=== PATIENT | male | born 2000 | race Caucasian/White ===

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

== ENCOUNTER 2020-08-07 05:04 | Emergency (ER) | payer SELFPAY ==
[~2020-08-07] VITALS: Ht 185.4 cm; Wt 79.4 kg
[2020-08-07] MEDS ORDERED: THIAMINE 100mg/ml INJ (200mg/2ml VIAL) IV ONE (08:30)
[2020-08-07] MEDS ORDERED: SODIUM CHLORIDE 0.9% 1,000 ML IV ONE ×2 (08:30)
[2020-08-07 09:00] VITALS: BP 107/81
[2020-08-07 09:14] LABS: Basophils # (auto) 0.1 10 ^3/uL (0-0.2); Basophils % (auto) 0.8 % (0.0-2.0); Eosinophils # (auto) 0.1 10 ^3/uL (0-0.8); Eosinophils % (auto) 0.9 % (0.0-7.0); Hematocrit 43.8 % (41.0-53.0); Hemoglobin 15.4 g/dL (13.5-17.5); Lymphocytes # (auto) 2.6 10 ^3/uL (0.4-5.4); Mean Corpuscular Hemoglobin 33.8 pg (28.0-32.0); Mean Corpuscular Hgb Conc. 35.2 g/dL (32.0-36.0); Mean Corpuscular Volume 96.2 fL (80.0-100.0); Monocytes # (auto) 0.4 10 ^3/uL (0-1.3); Monocytes % (auto) 6.8 % (0.0-12.0); Neutrophils % (auto) 49.5 % (37.0-80.0); Platelet Count (auto) 297 10^3/uL (140-450); Red Blood Cells 4.56 10^6/uL (4.5-5.90); Red Cell Distribution Width 12.1 % (11.8-14.3); White Blood Cell 6.1 10^3/uL (4.4-10.8)
[2020-08-07 09:34] LABS: Albumin 3.1 g/dL (3.4-5.0); Calcium 7.8 mg/dL (8.5-10.1); Potassium 3.3 mmol/L (3.5-5.1)
[2020-08-07 09:39] LABS: BUN/Creatinine Ratio 12.5; Bilirubin, Total 0.2 mg/dL (0.2-1.0); Total Protein 6.6 g/dL (6.4-8.2)
[2020-08-07] MEDS ORDERED: POTASSIUM EFFERVESENT TAB 25 MEQ PO ONE (11:00)
== END 2020-08-07 11:26 | disposition home or self-care (01) ==
LOC: EDBD 05:04 → ER 05:04
DX: F10.920 Alcohol use, unspecified with intoxication, uncomplicated (principal); E87.6 Hypokalemia; Z20.828 Contact with and (suspected) exposure to other viral communicable diseases
CPT/HCPCS: 36415; 71045; 80053; 80320; 84484; 85025; 87426; 96361; 96374; 99284; C9803; J3411; U0003

== ENCOUNTER 2020-11-06 22:34 | Emergency (ER) | payer BC, OTHER, SELFPAY ==
[~2020-11-06] VITALS: Ht 185.4 cm; Wt 77.1 kg
[~2020-11-06 22:34] MED LIST changes: -IBUP800T24 PO; +IBUP800T27 PO
[2020-11-06] MEDS ORDERED: SODIUM CHLORIDE 0.9% 1,000 ML IV ONE ×2 (23:15)
[2020-11-07] MEDS ORDERED: NOREPINEPHRINE 8 MG/250ML KIT 250 ML IV SCH (00:30)
[2020-11-07 00:52] LABS: Basophils # (auto) 0.1 10 ^3/uL (0-0.2); Basophils % (auto) 0.4 % (0.0-2.0); Eosinophils # (auto) 0 10 ^3/uL (0-0.8); Hemoglobin 17.2 g/dL (13.5-17.5); Neutrophils # (auto) 12.2 10 ^3/uL (1.6-8.6)
[2020-11-07 00:55] LABS: Hematocrit 48.3 % (41.0-53.0); Lymphocytes # (auto) 1.4 10 ^3/uL (0.4-5.4); Lymphocytes % (auto) 9.4 % (10.0-50.0); Mean Corpuscular Hemoglobin 34.5 pg (28.0-32.0); Mean Corpuscular Hgb Conc. 35.5 g/dL (32.0-36.0); Mean Corpuscular Volume 97.1 fL (80.0-100.0); Monocytes # (auto) 1.1 10 ^3/uL (0-1.3); Monocytes % (auto) 7.3 % (0.0-12.0); Neutrophils % (auto) 82.9 % (37.0-80.0); Nucleated Red Blood Cells % 0.1 %; Platelet Count (auto) 342 10^3/uL (140-450); Red Blood Cells 4.98 10^6/uL (4.5-5.90); Red Cell Distribution Width 12.1 % (11.8-14.3); White Blood Cell 14.8 10^3/uL (4.4-10.8)
[2020-11-07 01:28] LABS: INR 1.05 (0.9-1.15); Partial Thromboplastin Time 23.9 sec (23.0-31.2)
[2020-11-07 01:38] LABS: Alanine Aminotransferase 31 U/L (16-61); Alkaline Phosphatase 93 U/L (45-117); Anion Gap 18 (5-15); Aspartate Aminotransferase 43 U/L (15-37); Blood Urea Nitrogen 9 mg/dL (7-18); Calcium 8.4 mg/dL (8.5-10.1); Carbon Dioxide 17 mmol/L (21-32); Chloride 101 mmol/L (98-107); GFR African American 139 mL/min; GFR Non-African American 115 mL/min; Glucose 84 mg/dL (74-106); Potassium 3.4 mmol/L (3.5-5.1); Sodium 136 mmol/L (136-145)
[2020-11-07 01:39] LABS: Albumin 3.6 g/dL (3.4-5.0); Bilirubin, Total 1.3 mg/dL (0.2-1.0); Total Protein 7.3 g/dL (6.4-8.2)
[2020-11-07 01:40] LABS: BUN/Creatinine Ratio 10.2
[2020-11-07 02:00] VITALS: BP 134/78
[2020-11-07 03:03] LABS: Amphetamine Screen, Urine POSITIVE (NEGATIVE); Barbiturate Scree,Urine NEGATIVE (NEGATIVE); Benzodiazephine Screen, Urine NEGATIVE (NEGATIVE); Cannabinoid Screen, Urine POSITIVE (NEGATIVE); Cocaine Screen, Urine POSITIVE (NEGATIVE); Opiate Scree,Urine NEGATIVE (NEGATIVE); Phencyclidine Screen, Urine NEGATIVE (NEGATIVE)
== END 2020-11-07 02:37 | disposition home or self-care (01) ==
LOC: EDBD 22:34 → ER 22:34
DX: F10.129 Alcohol abuse with intoxication, unspecified (principal); R00.2 Palpitations; R00.0 Tachycardia, unspecified; Y90.9 Presence of alcohol in blood, level not specified; Z79.899 Other long term (current) drug therapy
CPT/HCPCS: 36415; 71045; 80053; 80307; 80320; 83735; 84443; 84484; 85025; 85379; 85610; 85730; 93005; 96360; 99285; J7030

== ENCOUNTER 2021-06-18 01:17 | Emergency (ER) | payer BC ==
[~2021-06-18] VITALS: Ht 185.4 cm; Wt 79.4 kg
[2021-06-18 01:28] VITALS: BP 126/83
== END 2021-06-18 01:32 | disposition left against medical advice (07) ==
LOC: ER 01:17
DX: M25.521 Pain in right elbow (principal)

== ENCOUNTER 2021-11-28 12:08 | Emergency (ER) | payer SELFPAY ==
[~2021-11-28] VITALS: Ht 185.4 cm; Wt 79.4 kg
[2021-11-28 12:23] VITALS: BP 124/83
[2021-11-28] MEDS ORDERED: ASPirin 81 mg TAB PO ONE (12:45)
[2021-11-28 13:36] LABS: Eosinophils # (auto) 0 10 ^3/uL (0-0.8); Eosinophils % (auto) 0.5 % (0.0-7.0); Lymphocytes # (auto) 0.5 10 ^3/uL (0.4-5.4); Red Cell Distribution Width 11.7 % (11.8-14.3); White Blood Cell 8.5 10^3/uL (4.4-10.8)
[2021-11-28 13:38] LABS: Basophils # (auto) 0 10 ^3/uL (0-0.2); Basophils % (auto) 0.5 % (0.0-2.0); Hemoglobin 16.4 g/dL (13.5-17.5); Lymphocytes % (auto) 5.9 % (10.0-50.0); Mean Corpuscular Hemoglobin 34.9 pg (28.0-32.0); Mean Corpuscular Hgb Conc. 35.7 g/dL (32.0-36.0); Mean Corpuscular Volume 97.6 fL (80.0-100.0); Monocytes # (auto) 1.1 10 ^3/uL (0-1.3); Monocytes % (auto) 12.5 % (0.0-12.0); Neutrophils # (auto) 6.9 10 ^3/uL (1.6-8.6); Neutrophils % (auto) 80.6 % (37.0-80.0); Nucleated Red Blood Cells % 0.1 %; Red Blood Cells 4.72 10^6/uL (4.5-5.90)
[2021-11-28 14:47] LABS: Albumin 3.6 g/dL (3.4-5.0); Calcium 9.1 mg/dL (8.5-10.1); Potassium 4.2 mmol/L (3.5-5.1)
[2021-11-28 14:51] LABS: BUN/Creatinine Ratio 6.7; Bilirubin, Total 0.2 mg/dL (0.2-1.0); Total Protein 7.4 g/dL (6.4-8.2)
== END 2021-11-28 15:34 | disposition home or self-care (01) ==
LOC: ER 12:08
DX: R07.89 Other chest pain (principal); F17.210 Nicotine dependence, cigarettes, uncomplicated
CPT/HCPCS: 36415; 71046; 80053; 84484; 85025; 93005

== ENCOUNTER 2022-04-06 02:18 | Emergency (ER) | payer MEDICAID ==
[~2022-04-06] VITALS: Ht 182.9 cm; Wt 68.0 kg
[2022-04-06 03:12] LABS: Basophils # (auto) 0.1 10 ^3/uL (0-0.2); Basophils % (auto) 1.2 % (0.0-2.0); Eosinophils # (auto) 0 10 ^3/uL (0-0.8); Eosinophils % (auto) 0.4 % (0.0-7.0); Hematocrit 48.7 % (41.0-53.0); Lymphocytes # (auto) 2.2 10 ^3/uL (0.4-5.4); Lymphocytes % (auto) 38.3 % (10.0-50.0); Mean Corpuscular Hemoglobin 32.2 pg (28.0-32.0); Mean Corpuscular Hgb Conc. 34.9 g/dL (32.0-36.0); Mean Corpuscular Volume 92.2 fL (80.0-100.0); Monocytes # (auto) 0.6 10 ^3/uL (0-1.3); Monocytes % (auto) 10.9 % (0.0-12.0); Neutrophils # (auto) 2.9 10 ^3/uL (1.6-8.6); Neutrophils % (auto) 49.2 % (37.0-80.0); Red Blood Cells 5.28 10^6/uL (4.5-5.90); Red Cell Distribution Width 13.3 % (11.8-14.3); White Blood Cell 5.9 10^3/uL (4.4-10.8)
[2022-04-06 03:29] LABS: Albumin 3.5 g/dL (3.4-5.0); BUN/Creatinine Ratio 6.7; Calcium 8.4 mg/dL (8.5-10.1); Magnesium 2.2 mg/dL (1.6-2.6); Potassium 3.7 mmol/L (3.5-5.1)
[2022-04-06 03:32] LABS: Bilirubin, Total 0.5 mg/dL (0.2-1.0); Lactic Acid w/Reflex 2.7 mmol/L (0.4-2.0); Total Protein 7.3 g/dL (6.4-8.2)
[2022-04-06 04:00] LABS: Blood Alcohol 332.3 mg/dL (0-5)
[2022-04-06] MEDS ORDERED: THIAMINE 100mg/ml INJ (200mg/2ml VIAL) IV ONE (04:00)
[2022-04-06] MEDS ORDERED: SODIUM CHLORIDE 0.9% 1,000 ML IV ONE ×2 (04:00→04:30)
[2022-04-06 04:05] LABS: INR 0.92 (0.9-1.15)
[2022-04-06] MEDS ORDERED: CYANOCOBALAMIN (B-12) 1000 MCG/1 ML VIAL IM ONE (08:45)
[2022-04-06] MEDS ORDERED: FOLIC ACID 1 MG, MULTIPLE VITAMIN 10 ML, MAGNESIUM SULF SDV 50% 8 MEQ, THIAMINE INJ 100... INJ SCH ×5 (12:00)
[2022-04-06 13:45] LABS: Amphetamine Screen, Urine NEGATIVE (NEGATIVE); Barbiturate Scree,Urine NEGATIVE (NEGATIVE); Benzodiazephine Screen, Urine NEGATIVE (NEGATIVE); Cannabinoid Screen, Urine NEGATIVE (NEGATIVE); Cocaine Screen, Urine NEGATIVE (NEGATIVE); Opiate Scree,Urine NEGATIVE (NEGATIVE); Phencyclidine Screen, Urine NEGATIVE (NEGATIVE)
[2022-04-06 14:47] LABS: Urine Bacteria NONE SEEN /hpf (None Seen); Urine Blood Negative /uL (Negative); Urine Specific Gravity 1.011 (1.001-1.035); Urine WBC 1 /hpf (0 - 3)
[2022-04-06] MEDS ORDERED: CHL25C PO (18:21)
[2022-04-06] MEDS ORDERED: THI100I IJ (18:21)
[2022-04-06] MEDS ORDERED: FOLITAB22 PO (18:21)
[2022-04-06 18:38] VITALS: BP 118/86
== END 2022-04-06 18:49 | disposition home or self-care (01) ==
LOC: EDBD 02:18 → ER 02:18
DX: G62.1 Alcoholic polyneuropathy (principal); F10.129 Alcohol abuse with intoxication, unspecified; F17.210 Nicotine dependence, cigarettes, uncomplicated; M54.2 Cervicalgia; Y90.8 Blood alcohol level of 240 mg/100 ml or more
CPT/HCPCS: 36415; 70450; 71045; 72125; 80053; 80307; 80320; 81001; 83605; 83735; 84484; 85025; 85610; 93005; 96361; 96365; 96366; 96372; 96375; 99285; J3411; J3420; J3475; J7030

== ENCOUNTER 2023-04-08 22:24 | Emergency (ER) | payer BC, MEDICAID ==
[~2023-04-08] VITALS: Ht 185.4 cm; Wt 80.0 kg
[~2023-04-08 22:24] MED LIST changes: +CHL25C PO; +FOLITAB22 PO; +IBUP-1456 PO; -IBUP800T27 PO; +THI100I IJ
[2023-04-08 22:37] VITALS: BP 138/97; PULSE 100; RESP 18; O2SAT 96
[2023-04-08 22:58] LABS: Basophils # (auto) 0.1 10 ^3/uL (0-0.2); Eosinophils # (auto) 0 10 ^3/uL (0-0.8); Hemoglobin 15.6 g/dL (13.5-17.5); Neutrophils # (auto) 3.2 10 ^3/uL (1.6-8.6); Red Blood Cells 4.48 10^6/uL (4.5-5.90)
[2023-04-08 22:59] LABS: Basophils % (auto) 1.2 % (0.0-2.0); Eosinophils % (auto) 0.3 % (0.0-7.0); Hematocrit 44.4 % (41.0-53.0); Lymphocytes # (auto) 2.1 10 ^3/uL (0.4-5.4); Lymphocytes % (auto) 36.1 % (10.0-50.0); Mean Corpuscular Hemoglobin 34.7 pg (28.0-32.0); Mean Corpuscular Volume 99.1 fL (80.0-100.0); Monocytes # (auto) 0.5 10 ^3/uL (0-1.3); Monocytes % (auto) 8.1 % (0.0-12.0); Neutrophils % (auto) 54.3 % (37.0-80.0); Nucleated Red Blood Cells % 0.1 %; Red Cell Distribution Width 11.8 % (11.8-14.3); White Blood Cell 5.9 10^3/uL (4.4-10.8)
[2023-04-08 23:21] LABS: INR 1.01 (0.9-1.15); Partial Thromboplastin Time 24.8 SEC (24.5-34.5); Prothrombin Time 10.6 sec (9.3-11.8)
[2023-04-08] MEDS ORDERED: IOHEXOL 300 MG/ML 100ML BOTTLE IJ ONE (23:30)
[2023-04-09 02:00] LABS: Alanine Aminotransferase 49 U/L (7-40); Alkaline Phosphatase 81 U/L (46-116); Anion Gap 13 (5-15); BUN/Creatinine Ratio 5.1 (10.0-20.0); Blood Urea Nitrogen 5 mg/dL (9-23); Calcium 9.2 mg/dL (8.7-10.4); Carbon Dioxide 24 mmol/L (20-30); Chloride 105 mmol/L (98-107); Glucose 107 mg/dL (74-106); Potassium 4.2 mmol/L (3.5-5.1); Sodium 142 mmol/L (136-145)
[2023-04-09 02:01] LABS: Albumin 4.3 g/dL (3.2-4.8)
[2023-04-09 02:02] LABS: Aspartate Aminotransferase 83 U/L (13-40); Bilirubin, Total 0.5 mg/dL (0.2-1.0); Total Protein 6.8 g/dL (5.7-8.2)
== END 2023-04-09 00:45 | disposition left against medical advice (07) ==
LOC: EDBD 22:24 → ER 22:24
DX: S00.93XA Contusion of unspecified part of head, initial encounter (principal); F32.9 Major depressive disorder, single episode, unspecified; F17.210 Nicotine dependence, cigarettes, uncomplicated; F10.90 Alcohol use, unspecified, uncomplicated; Z98.890 Other specified postprocedural states; Z79.899 Other long term (current) drug therapy; Y08.89XA Assault by other specified means, initial encounter; Y93.89 Activity, other specified; Y92.89 Other specified places as the place of occurrence of the external cause; Y99.8 Other external cause status
CPT/HCPCS: 36415; 70450; 70486; 71260; 72125; 74177; 80053; 80320; 85025; 85610; 85730; 99285; Q9967

== ENCOUNTER 2023-11-10 18:09 | Inpatient (IN) | payer BC, MEDICAID ==
[~2023-11-10] VITALS: Ht 185.4 cm; Wt 80.4 kg
[2023-11-10] MEDS: LORazepam 2MG/ML-1ML VIAL IV ONE ×3 (18:55→20:20)
[2023-11-10 18:58] LABS: Basophils # (auto) 0.1 10 ^3/uL (0-0.2); Eosinophils # (auto) 0 10 ^3/uL (0-0.8); Hematocrit 44.8 % (41.0-53.0); Hemoglobin 15.4 g/dL (13.5-17.5); Lymphocytes # (auto) 0.5 10 ^3/uL (0.4-5.4); Mean Corpuscular Hgb Conc. 34.4 g/dL (32.0-36.0); Mean Corpuscular Volume 101.7 fL (80.0-100.0); Monocytes # (auto) 0.5 10 ^3/uL (0-1.3); Monocytes % (auto) 7.1 % (0.0-12.0); Neutrophils # (auto) 6.4 10 ^3/uL (1.6-8.6); Neutrophils % (auto) 84.9 % (37.0-80.0); Nucleated Red Blood Cells % 0.1 %; White Blood Cell 7.5 10^3/uL (4.4-10.8)
[2023-11-10 19:05] LABS: Chloride 103 mmol/L (98-107); Potassium 3.5 mmol/L (3.5-5.1); Sodium 140 mmol/L (136-145)
[2023-11-10 19:06] LABS: Anion Gap 19 (5-15); Calcium 8.8 mg/dL (8.5-10.1); Carbon Dioxide 18 mmol/L (20-30)
[2023-11-10 19:11] LABS: Glucose 167 mg/dL (74-106)
[2023-11-10 19:14] LABS: Blood Urea Nitrogen < 5 mg/dL (9-23)
[2023-11-10 19:35] VITALS: PULSE 133; RESP 16; O2SAT 95
[2023-11-10] MEDS: SODIUM CHLORIDE 0.9% 1,000 ML IV ONE ×2 (21:09)
[2023-11-10 22:00] LABS: Amphetamine Screen, Urine Neg (NEGATIVE); Benzodiazephine Screen, Urine Neg (NEGATIVE)
[2023-11-10 22:01] LABS: Barbiturate Scree,Urine Neg (NEGATIVE); Cannabinoid Screen, Urine Neg (NEGATIVE); Cocaine Screen, Urine Neg (NEGATIVE); Opiate Scree,Urine Neg (NEGATIVE); Phencyclidine Screen, Urine Neg (NEGATIVE)
[2023-11-10] MEDS ORDERED: DOCUSATE SOD 100 MG CAP PO PRN (22:30)
[2023-11-10] MEDS ORDERED: hydrALAZINE HCL 20 MG/ML VL IV PRN (22:30)
[2023-11-10] MEDS ORDERED: ACETAMINOPHEN 325 MG TAB PO PRN (22:30)
[2023-11-10] MEDS ORDERED: MORPHINE SULFATE INJ 2 MG/ml SYRG IV PRN (23:30)
[2023-11-10] MEDS ORDERED: NITROGLYCERIN 0.4 MG SL TAB SL PRN (23:30)
[2023-11-11] VITALS (8 sets, daily range): BP systolic 105–137; BP diastolic 69–93; PULSE 54–99; RESP 17–20; TEMP 97.9–98.5; O2SAT 94–99
[2023-11-11] MEDS: HYDROcodone-ACET 5/325MG TAB PO PRN (01:46)
[2023-11-11] MEDS: ONDANSETRON HCL 4 MG/2 ML VIAL IV PRN (01:46)
[2023-11-11] MEDS: LORazepam 2MG/ML-1ML VIAL IV PRN (04:48)
[2023-11-11] MEDS: SODIUM CHLOR 0.9% PF (SALINE LOCK) 10ML VIAL/SYR IV SCH (06:00)
[2023-11-11 07:32] LABS: Basophils # (auto) 0.1 10 ^3/uL (0-0.2); Eosinophils # (auto) 0 10 ^3/uL (0-0.8); Hemoglobin 13.1 g/dL (13.5-17.5); Lymphocytes # (auto) 1.3 10 ^3/uL (0.4-5.4); Monocytes # (auto) 0.7 10 ^3/uL (0-1.3); Neutrophils # (auto) 3.3 10 ^3/uL (1.6-8.6); Neutrophils % (auto) 60.3 % (37.0-80.0)
[2023-11-11 07:35] LABS: Basophils % (auto) 1.2 % (0.0-2.0); Eosinophils % (auto) 0.6 % (0.0-7.0); Hematocrit 37.9 % (41.0-53.0); Lymphocytes % (auto) 24.5 % (10.0-50.0); Mean Corpuscular Hemoglobin 34.9 pg (28.0-32.0); Mean Corpuscular Hgb Conc. 34.6 g/dL (32.0-36.0); Mean Corpuscular Volume 100.7 fL (80.0-100.0); Monocytes % (auto) 13.4 % (0.0-12.0); Nucleated Red Blood Cells % 0.2 %; Red Blood Cells 3.76 10^6/uL (4.5-5.90); White Blood Cell 5.5 10^3/uL (4.4-10.8)
[2023-11-11 07:38] LABS: Alanine Aminotransferase 107 U/L (7-40); Albumin 3.1 g/dL (3.2-4.8); Alkaline Phosphatase 79 U/L (46-116); Anion Gap 9 (5-15); Aspartate Aminotransferase 179 U/L (13-40); Carbon Dioxide 25 mmol/L (20-30); Chloride 105 mmol/L (98-107); Glucose 89 mg/dL (74-106); Potassium 3.8 mmol/L (3.5-5.1); Sodium 139 mmol/L (136-145)
[2023-11-11 07:39] LABS: BUN/Creatinine Ratio 6.3 (10.0-20.0); Bilirubin, Total 1.2 mg/dL (0.2-1.0); Blood Urea Nitrogen < 5 mg/dL (9-23); Total Protein 5.3 g/dL (5.7-8.2)
[2023-11-11] MEDS: MULTIPLE VITAMIN TAB PO SCH (10:47)
[2023-11-11] MEDS: THIAMINE 100mg/ml INJ (200mg/2ml VIAL) IV SCH (10:49)
[2023-11-11] MEDS: FOLIC ACID 1 MG in D5W 5% 50 ML INJ SCH (12:00)
[2023-11-11] MEDS: PANTOPRAZOLE 40 MG TAB PO ONE (13:53)
[2023-11-11] MEDS: chlordiazePOXIDE HCL 5 MG CAP PO PRN (18:32)
[2023-11-12] VITALS (9 sets, daily range): BP systolic 116–140; BP diastolic 73–95; PULSE 50–82; RESP 17–65; TEMP 97.8–98.2; O2SAT 19–100
[2023-11-12] MEDS: PANTOPRAZOLE 40 MG TAB PO SCH (09:01)
[2023-11-13] VITALS (8 sets, daily range): BP systolic 125–139; BP diastolic 70–88; PULSE 51–68; RESP 12–20; TEMP 97.8–99.1; O2SAT 96–100
[2023-11-13] MEDS: SODIUM CHLORIDE 0.9% 1,000 ML IV SCH (11:45)
[2023-11-14 01:00] VITALS: BP 137/91; PULSE 54; RESP 14; TEMP 98.6; O2SAT 98
[2023-11-14 05:00] VITALS: BP 123/86; PULSE 58; RESP 14; TEMP 98.1; O2SAT 99
[2023-11-14 08:00] VITALS: BP_SYST 123; BP_SYST 133; BP_DIAS 86; BP_DIAS 93; PULSE 48; PULSE 97; RESP 14; RESP 16; TEMP 98; TEMP 98.1; O2SAT 100; O2SAT 99
[2023-11-14 12:00] VITALS: BP 132/81; PULSE 102; RESP 18; TEMP 97.7; O2SAT 99
[2023-11-14 16:00] VITALS: BP 132/81; PULSE 102; RESP 18; TEMP 97.7; O2SAT 99
[2023-11-14] MEDS ORDERED: ZOFR4T PO (16:43)
[2023-11-14] MEDS ORDERED: LORA-1121 PO (16:43)
[2023-11-14] MEDS ORDERED: PANT40TA2 PO (16:43)
[2023-11-14] MEDS ORDERED: MULT-351 PO (16:43)
[2023-11-14 17:48] VITALS: BP 123/86; PULSE 58; RESP 18; TEMP 36.5; O2SAT 99
== END 2023-11-14 19:50 | disposition home or self-care (01) | DRG 897 ==
LOC: EDBD 18:09 → EDUNIT# 18:09 → ER 18:09 → TELE 23:29 → TELE-WESTW 11-11 03:29
PROVIDERS: ADMIT Nurse Practitioner Family; ATTEND Internal Medicine
DX: F10.139 Alcohol abuse with withdrawal, unspecified (principal); D69.6 Thrombocytopenia, unspecified; I16.0 Hypertensive urgency; N28.9 Disorder of kidney and ureter, unspecified; F32.A Depression, unspecified; F17.210 Nicotine dependence, cigarettes, uncomplicated; K70.9 Alcoholic liver disease, unspecified; R74.01 Elevation of levels of liver transaminase levels; Y90.9 Presence of alcohol in blood, level not specified; Z82.3 Family history of stroke; Z83.3 Family history of diabetes mellitus
CPT/HCPCS: 36415; 80048; 80053; 80307; 85025; 87081; 97110; 97116; 97163; 97530; G0378; J2405; J7060

== ENCOUNTER 2024-06-25 14:40 | Emergency (ER) | payer BC, MEDICAID ==
[~2024-06-25] VITALS: Ht 185.4 cm; Wt 85.0 kg
[~2024-06-25 14:40] MED LIST changes: +LORA-1121 PO; +MULT-351 PO; +PANT40TA2 PO; +ZOFR4T PO
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
[2024-06-25] MEDS ORDERED: SODIUM CHLORIDE 0.9% 1,000 ML IV ONE (15:00)
[2024-06-25] MEDS ORDERED: ONDANSETRON HCL 4 MG/2 ML VIAL IV ONE (15:00)
[2024-06-25 15:37] LABS: Basophils # (auto) 0 10 ^3/uL (0-0.2); Basophils % (auto) 0.6 % (0.0-2.0); Eosinophils # (auto) 0 10 ^3/uL (0-0.8); Eosinophils % (auto) 0.4 % (0.0-7.0); Hematocrit 48.3 % (41.0-53.0); Hemoglobin 17.3 g/dL (13.5-17.5); Lymphocytes # (auto) 1.6 10 ^3/uL (0.4-5.4); Lymphocytes % (auto) 20.6 % (10.0-50.0); Mean Corpuscular Hemoglobin 32.7 pg (28.0-32.0); Mean Corpuscular Hgb Conc. 35.8 g/dL (32.0-36.0); Mean Corpuscular Volume 91.4 fL (80.0-100.0); Monocytes # (auto) 0.9 10 ^3/uL (0-1.3); Monocytes % (auto) 10.8 % (0.0-12.0); Neutrophils # (auto) 5.4 10 ^3/uL (1.6-8.6); Neutrophils % (auto) 67.6 % (37.0-80.0); Nucleated Red Blood Cells % 0.1 %; Platelet Count (auto) 243 10^3/uL (140-450); Red Blood Cells 5.29 10^6/uL (4.5-5.90); Red Cell Distribution Width 13.6 % (11.8-14.3); White Blood Cell 7.9 10^3/uL (4.4-10.8)
[2024-06-25 15:51] LABS: Anion Gap 10 (5-15); Carbon Dioxide 31 mmol/L (20-31); Chloride 103 mmol/L (98-107); Potassium 3.8 mmol/L (3.5-5.1); Sodium 144 mmol/L (136-145)
[2024-06-25 15:52] LABS: Calcium 9.5 mg/dL (8.7-10.4)
[2024-06-25 15:57] LABS: BUN/Creatinine Ratio 6.9 (10.0-20.0)
[2024-06-25 16:04] LABS: Acetaminophen < 2.0 UG/ML (10.0-20.0)
[2024-06-25 16:07] LABS: Blood Alcohol 387.8 mg/dL (<10); Blood Urea Nitrogen 7 mg/dL (9-23); Glucose 115 mg/dL (74-106)
[2024-06-25 16:18] LABS: Salicylate < 3.0 mg/dL (-30)
[2024-06-25 16:54] VITALS: BP 176/103; PULSE 86; RESP 18; TEMP 97.5; O2SAT 98
== END 2024-06-25 22:57 | disposition left against medical advice (07) ==
LOC: ER 14:40
DX: F10.129 Alcohol abuse with intoxication, unspecified (principal); F32.9 Major depressive disorder, single episode, unspecified; F17.210 Nicotine dependence, cigarettes, uncomplicated; Z86.73 Personal history of transient ischemic attack (TIA), and cerebral infarction without residual deficits; Z98.890 Other specified postprocedural states; Z79.899 Other long term (current) drug therapy; Y90.0 Blood alcohol level of less than 20 mg/100 ml
CPT/HCPCS: 36415; 80048; 80320; 80329; 85025

== ENCOUNTER 2024-06-28 12:29 | Emergency (ER) | payer MEDICAID ==
[~2024-06-28] VITALS: Ht 180.3 cm; Wt 77.2 kg
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
[2024-06-28 16:22] LABS: Basophils # (auto) 0 10 ^3/uL (0-0.2); Basophils % (auto) 0.7 % (0.0-2.0); Eosinophils # (auto) 0.2 10 ^3/uL (0-0.8); Eosinophils % (auto) 2.5 % (0.0-7.0); Hematocrit 41.4 % (41.0-53.0); Hemoglobin 14.4 g/dL (13.5-17.5); Lymphocytes # (auto) 2.1 10 ^3/uL (0.4-5.4); Lymphocytes % (auto) 32.8 % (10.0-50.0); Mean Corpuscular Hemoglobin 32.2 pg (28.0-32.0); Mean Corpuscular Hgb Conc. 34.7 g/dL (32.0-36.0); Mean Corpuscular Volume 92.7 fL (80.0-100.0); Monocytes # (auto) 0.5 10 ^3/uL (0-1.3); Monocytes % (auto) 7.2 % (0.0-12.0); Neutrophils # (auto) 3.7 10 ^3/uL (1.6-8.6); Neutrophils % (auto) 56.8 % (37.0-80.0); Platelet Count (auto) 198 10^3/uL (140-450); Red Blood Cells 4.46 10^6/uL (4.5-5.90); Red Cell Distribution Width 13.2 % (11.8-14.3); White Blood Cell 6.4 10^3/uL (4.4-10.8)
[2024-06-28 16:36] LABS: Prothrombin Time 10.6 sec (9.3-11.8)
[2024-06-28 16:48] LABS: Alanine Aminotransferase 20 U/L (7-40); Anion Gap 7 (5-15); Aspartate Aminotransferase 17 U/L (13-40); Blood Alcohol 6.6 mg/dL (<10); Calcium 9.6 mg/dL (8.7-10.4); Carbon Dioxide 29 mmol/L (20-31); Chloride 105 mmol/L (98-107); Glucose 95 mg/dL (74-106); Potassium 4.4 mmol/L (3.5-5.1); Sodium 141 mmol/L (136-145)
[2024-06-28 16:49] LABS: Albumin 3.7 g/dL (3.2-4.8); Bilirubin, Total 0.8 mg/dL (0.2-1.0); Total Protein 5.9 g/dL (5.7-8.2)
[2024-06-28 16:50] LABS: Alkaline Phosphatase 133 U/L (46-116); BUN/Creatinine Ratio 4.8 (10.0-20.0); Blood Urea Nitrogen < 5 mg/dL (9-23)
[2024-06-28 17:04] VITALS: BP 99/62; PULSE 52; RESP 18; O2SAT 98
== END 2024-06-28 17:06 | disposition home or self-care (01) ==
LOC: EDBD 12:29 → ER 12:29
DX: F10.129 Alcohol abuse with intoxication, unspecified (principal); F17.210 Nicotine dependence, cigarettes, uncomplicated; Z79.899 Other long term (current) drug therapy; Z86.73 Personal history of transient ischemic attack (TIA), and cerebral infarction without residual deficits; Z98.890 Other specified postprocedural states
CPT/HCPCS: 36415; 80053; 80320; 85025; 85610